=== PATIENT | female | born 1955 | race Caucasian/White ===

== ENCOUNTER → 2019-10-11 09:26 | Outpatient (CLI) | payer OTHER, SELFPAY ==
[2019-10-11 10:01] LABS: Add Manual Diff / Slide Review NO; Basophils Absolute Auto 0 /uL (0-100); Basophils Percent Auto 0.5 % (0-2); Eosinophils Absolute Auto 300 /uL (0-450); Eosinophils Percent Auto 3.5 % (2-4); Hematocrit 43.4 % (36-46); Hemoglobin 14.7 g/dL (12.0-16.0); Lymphocytes Absolute Auto 3000 /uL (1100-4500); Lymphocytes Percent Auto 38.3 % (25-40); Mean Corpuscular HGB Conc 33.8 % (30-36); Mean Corpuscular Hemoglobin 30.3 PG (26-34); Mean Corpuscular Volume 89.4 fL (80-100); Monocytes Absolute Auto 500 /uL (0-900); Monocytes Percent Auto 6.7 % (3-14); Neutrophils Absolute Auto 4100 /uL (1500-7000); Platelet Count 193 X10^3/uL (150-400); Red Blood Cell Count 4.85 X10^6/uL (4.0-5.2); Red Cell Distribution Width 12.8 % (11.6-14.8)
[2019-10-11 10:05] LABS: Hemoglobin A1C% w Est Avg Glu 9.5 % (4.0-6.0)
[2019-10-11 10:44] LABS: Creatinine Urine Random 36.9 mg/dL
[2019-10-11 10:46] LABS: Alanine Aminotransferase 39 IU/L (<35); Albumin 4.5 g/dL (3.5-5.0); Albumin Globulin Ratio 1.5 (1.0-2.8); Alkaline Phosphatase 97 U/L (38-126); Aspartate Aminotransferase 29 IU/L (14-36); Bilirubin Total 0.9 mg/dL (0.2-1.3); Blood Urea Nitrogen 14 mg/dL (7-17); Calcium 9.9 mg/dL (8.4-10.2); Carbon Dioxide 32 mmol/L (22-32); Chloride 97 mmol/L (98-107); Cholesterol 300 mg/dL (140-199); Estimated Glomerular Filt Rate > 60.0 mL/min (>60); Glucose 202 mg/dL (80-110); HDL Cholesterol 37 mg/dL (40-60); HEMOLYSIS < 15 (0-50); LDL Cholesterol Calculated 190 mg/dL (<100); Potassium 4.6 mmol/L (3.4-5.1); Sodium 136 mmol/L (137-145); Total Protein 7.5 g/dL (6.3-8.2); Triglycerides 367 mg/dL (35-150)
[2019-10-11 10:47] LABS: Microalbumi Creatinin Ratio Ur 21.6 ug/mg CR (<30); Microalbumin Urine Random 0.8 mg/dL (0-1.6)
[2019-10-11 11:00] LABS: Free T3, Triiodothyronine Free 2.77 pg/mL (2.77-5.27); Free T4, Direct Thyroxine 0.54 ng/dL (0.78-2.19)
[2019-10-11 11:14] LABS: Thyroid Stimulating Hormone 8.84 uIU/mL (0.47-4.68)
[2019-10-11 11:31] LABS: Hep C Virus Ab w/Reflex Quant NEGATIVE s/c (NEGATIVE)
== END ==
PROVIDERS: PCP Nurse Practitioner; Visit Provider Nurse Practitioner
DX: E03.9 Hypothyroidism, unspecified (principal); E06.3 Autoimmune thyroiditis; E66.9 Obesity, unspecified; I10 Essential (primary) hypertension; Z00.00 Encounter for general adult medical examination without abnormal findings; Z11.59 Encounter for screening for other viral diseases; Z91.89 Other specified personal risk factors, not elsewhere classified; R81 Glycosuria
CPT/HCPCS: 36415; 80053; 80061; 82043; 82570; 83036; 84439; 84443; 84481; 85025; 86803

== ENCOUNTER → 2019-11-23 11:43 | Outpatient (CLI) | payer OTHER, SELFPAY ==
--- NOTE | 2019-11-23 | DI.CT.S_ITS ---
PROCEDURE: CT ABDOMEN PELVIS WO CON INDICATIONS: Calculus of ureter and kidney TECHNIQUE: Noncontrast 5 mm thick sections acquired from the diaphragms to the symphysis. 5 mm thick coronal and sagittal reformats were then performed. For radiation dose reduction, the following was used: automated exposure control, adjustment of mA and/or kV according to patient size. COMPARISON: Outside Film, CT, CT ABDOMEN PELVIS WITHOUT CONTRAST, 04/27/2019, 16:44. FINDINGS: Image quality: Excellent. Lung bases: Lung bases are clear. Heart size is normal. Urinary system: There is a 9 mm stone in right kidney, and a 2 mm stone left kidney. Both kidneys are normal in size. No hydronephrosis or perinephric fat stranding. Both ureters appear non-dilated throughout their expected courses. Bladder wall thickness is normal; no calcified bladder stones. Other solid organs: There is diffuse hepatic fatty infiltration. Liver is normal in size. Gallbladder not visualized, probably resected. Pancreas is normal in contours. Spleen is normal in size. No adrenal nodules. Peritoneum and bowel: Unenhanced bowel loops demonstrate normal wall thickness and caliber. No free fluid or air. Nodes and vessels: No retroperitoneal or mesenteric adenopathy by size criteria. Aorta and inferior vena cava are normal in caliber. Abdominal wall: No ventral hernias. Pelvis: No free pelvic fluid. No inguinal hernias or adenopathy. Bones: No suspicious bony lesions. No vertebral body compression fractures. IMPRESSION: 1. A 9 mm stone in right kidney and a 2 mm stone in left kidney. No hydronephrosis. 2. Hepatic steatosis. Dictated by: Issa Mead M.D. on 11/23/2019 at 12:53 Approved by: Issa Mead M.D. on 11/23/2019 at 18:50
== END ==
PROVIDERS: PCP Nurse Practitioner; Referring Provider Urology; Visit Provider Urology
DX: N20.0 Calculus of kidney (principal); K76.0 Fatty (change of) liver, not elsewhere classified; N20.1 Calculus of ureter
CPT/HCPCS: 74176

== ENCOUNTER 2019-11-24 11:07 | Day surgery (SDC) | payer OTHER, SELFPAY ==
--- NOTE | 2019-11-24 | PATH_ITS ---
[facility] Accession Number: [id number] . 01 Material submitted: . colon - COLON POLYP AT 50 CM . 02 Diagnosis: Colon, Polyp at 50 cm, Biopsy: Tubular adenoma. MRV 11/28/2019 1104 Local . 02 Electronically signed: . Paty Das MD, Pathologist NPI- [id number] . 01 Gross description: . COLON POLYP AT 50 CM: Received in formalin is 1 fragment(s) of cabrera, soft tissue measuring 0.3 x 0.3 x 0.3 cm submitted entirely in 1 cassette(s) /QBJ 11/25/2019 0114 Local . 02 Pathologist provided ICD-10: D12.6 . 02 CPT . 217028 Specimen Comment: A duplicate report has been generated due to demographic updates. Performed at: 01 [facility] [address] [id number] MD Jacinto Shea MD Phone: [phone] Performed at: 02 [facility] [address] [facility] [address] [place], [place] [id number] MD Paty Das MD Phone: [phone]
[2019-11-24 12:59] VITALS: BP 159/91; PULSE 90; RESP 18; TEMP 36.4; O2SAT 96; BMI 42.0
[2019-11-24] MEDS: SODIUM CHLORIDE 0.9% 1,000 ML 200 ML IV (13:12)
--- NOTE | 2019-11-24 13:23 | PM.HP.1 ---
History of Present Illness History of Present Illness Date Patient Seen: 11/24/19 Time Patient Seen: 13:23 Chief complaint: [id number] SCREENING COLONOSCOPY Narrative: Patient here for her 1st screening colonoscopy. She has occasional rectal bleeding which he attributes to hemorrhoidal disease. Otherwise she is asymptomatic. Patient has morbid obesity and has type 2 diabetes. Patient History Medical History Depression (Chronic ~2001) Suzan's disease (Acute) Hypertension, essential (Acute) Mixed hyperlipidemia due to type 2 diabetes mellitus (Acute) Non-insulin dependent diabetes mellitus (Acute) Renal calculi (Acute ~06/2019) Surgical History Anesthesia (Resolved) History of ankle surgery (Resolved ~2008) Family & Social History Family History Father Alcoholism Social History: household members spouse Tobacco & Substance use: Smoking Status Never smoker alcohol intake never Substance Use Type does not use Meds Home Medications and Allergies Home Medications Medication Instructions Recorded Confirmed Type fluoxetine 10 mg capsule 10 mg PO DAILY #90 cap 09/26/19 11/24/19 Rx levothyroxine 125 mcg tablet 125 mcg PO DAILY #90 tab 10/13/19 11/24/19 Rx metformin 500 mg tablet 500 mg PO DAILY #30 tab 10/13/19 11/24/19 Rx cyclobenzaprine 10 mg tablet 10 mg PO BEDTIME PRN #20 tab 11/23/19 11/24/19 Rx Allergies Allergy/AdvReac Type Severity Reaction Status Date / Time Penicillins AdvReac Verified 11/24/19 12:47 Review of Systems Review of Systems ROS: Yes All systems reviewed with the patient and are negative except as otherwise documented Exam Vital Signs (past 8 hours): - 11/24/19 12:59 Temperature 97.5 F L Pulse Rate 90 Respiratory Rate 18 Blood Pressure 159/91 H Pulse Oximetry 96 Oxygen Delivery Method Room Air Narrative Exam Narrative: Morbidly obese white female in no distress. Ears nose and throat are unremarkable lungs are clear. Heart regular rhythm no murmur no gallop Abdomen markedly obese no organomegaly is identifiable. Rectal be done at colonoscopy. Assessment & Plan Assessment & Plan narrative: 64-year-old white female patient here for her 1st screening colonoscopy. She has no unanswered questions.
[2019-11-24] MEDS: fentaNYL 250 MCG/5 ML INJ IV (13:33)
[2019-11-24] MEDS: MIDAZOLAM 5 MG/5 ML VIAL IV (13:34)
--- NOTE | 2019-11-24 14:00 | PM.OP.ENDO ---
Operative Date/Time/Diagnoses Date of procedure: 11/24/19 Time of procedure: 14:00 Pre-op diagnosis: Screening colonoscopy Post-op diagnosis: other (Colonoscopy to the cecum with polypectomy x2 1 at 50 cm 1 in the cecum) Procedure & Clinicians Study performed: Total colonoscopy to the cecum with polypectomy x2 Same procedure as scheduled: No (Two polyps were identified 1 cm in the cecum and a 0.5 cm at 50 cm) Surgeon: Gautam Mercado Procedure Notes SCOAP/Timeout: This was done Procedure in detail: Patient was properly identified during surgical pause she was given a total of 2 mg of Versed and 150 micro g of fentanyl and remained comfortable throughout procedure. Patient's prep was barely adequate for colonoscopy. Was not a good prep. We were able to advance scope to the cecum. In the cecum she had a 1 cm adenoma which I excised using electro cautery snare. Somewhat disabled by a poor prep I was not able to identify the polyp for pathology. The polyp appeared to be a benign adenoma. Again it was 1 cm in diameter. At 50 cm I was able to toward identify a 5 mm polyp which I excised with cold snare. I did retrieve this polyp. I could not identify any further polyps because of the poor prep. Scope withdrawal time: 10 Sedation minutes: 25 Findings: polyp Specimen(s): other (5 mm polyp from 50 cm in the colon patient had a cecal polyp which I excised but I could not retrieve) Complications: none Post-procedure Recommendations: Colonscopy in 1 year and Colonscopy in 3 years Disposition: PACU
[2019-11-24 14:03] VITALS: BP 160/90; PULSE 86; RESP 16; TEMP 36.9; O2SAT 94
[2019-11-24 14:08] VITALS: BP 149/91; PULSE 86; RESP 16; O2SAT 94
[2019-11-24 14:13] VITALS: BP 154/79; PULSE 85; RESP 14; O2SAT 94
[2019-11-24 14:15] VITALS: BP 160/85; PULSE 85; RESP 14; TEMP 36.1; O2SAT 93
== END 2019-11-24 14:26 | disposition home or self-care (01) ==
PROVIDERS: PCP Nurse Practitioner; Referring Provider Surgery; Visit Provider Surgery
PROC: 0DJD8ZZ Inspection of Lower Intestinal Tract, Via Natural or Artificial Opening Endoscopic (ICD-10-PCS; CPT 45378; principal; 2019-11-24 13:45)
DX: Z12.11 Encounter for screening for malignant neoplasm of colon (principal); I10 Essential (primary) hypertension; E78.5 Hyperlipidemia, unspecified; E11.9 Type 2 diabetes mellitus without complications; E66.01 Morbid (severe) obesity due to excess calories; Z79.84 Long term (current) use of oral hypoglycemic drugs; D12.6 Benign neoplasm of colon, unspecified
CPT/HCPCS: 45385; 99152; J2250; J3010

== ENCOUNTER → 2019-12-23 09:28 | Outpatient (CLI) | payer OTHER, SELFPAY ==
[2019-12-23 10:21] LABS: Alanine Aminotransferase 49 IU/L (<35); Albumin 4.8 g/dL (3.5-5.0); Albumin Globulin Ratio 1.4 (1.0-2.8); Alkaline Phosphatase 102 U/L (38-126); Aspartate Aminotransferase 33 IU/L (14-36); BUN Creatinine Ratio 23.1 (6-22); Bilirubin Total 0.9 mg/dL (0.2-1.3); Blood Urea Nitrogen 15 mg/dL (7-17); Calcium 9.5 mg/dL (8.4-10.2); Carbon Dioxide 32 mmol/L (22-32); Chloride 101 mmol/L (98-107); Cholesterol 257 mg/dL (140-199); Estimated Glomerular Filt Rate > 60.0 mL/min (>60); Globulin 3.4 g/dL (1.7-4.1); Glucose 208 mg/dL (80-110); HDL Cholesterol 39 mg/dL (40-60); HEMOLYSIS < 15 (0-50); LDL Cholesterol Calculated 167 mg/dL (<100); Potassium 4.5 mmol/L (3.4-5.1); Sodium 142 mmol/L (137-145); Total Protein 8.2 g/dL (6.3-8.2); Triglycerides 254 mg/dL (35-150)
[2019-12-23 10:38] LABS: Vitamin D 25 Hydroxy (D3) 17.6 ng/mL (30.0-100.0)
[2019-12-23 10:39] LABS: Free T3, Triiodothyronine Free 3.51 pg/mL (2.77-5.27); Free T4, Direct Thyroxine 1.06 ng/dL (0.78-2.19)
[2019-12-23 10:42] LABS: Creatinine Urine Random 137.7 mg/dL
[2019-12-23 10:46] LABS: Microalbumi Creatinin Ratio Ur 13.7 ug/mg CR (<30); Microalbumin Urine Random 1.9 mg/dL (0-1.6)
[2019-12-23 10:52] LABS: Thyroid Stimulating Hormone 0.48 uIU/mL (0.47-4.68)
== END ==
PROVIDERS: PCP Nurse Practitioner; Referring Provider Nurse Practitioner; Visit Provider Nurse Practitioner
DX: E06.3 Autoimmune thyroiditis (principal); E11.69 Type 2 diabetes mellitus with other specified complication; E78.2 Mixed hyperlipidemia; F32.9 Major depressive disorder, single episode, unspecified; I10 Essential (primary) hypertension; Z79.899 Other long term (current) drug therapy; E78.5 Hyperlipidemia, unspecified; N20.0 Calculus of kidney
CPT/HCPCS: 36415; 80053; 80061; 82043; 82306; 82570; 83036; 84439; 84443; 84481

== ENCOUNTER → 2019-12-27 15:00 | Outpatient (CLI) | payer OTHER, SELFPAY ==
--- NOTE | 2019-12-27 15:02 | DI.RAD.S_ITS ---
PROCEDURE: XR SHOULDER RT MIN 2V INDICATIONS: right shoulder pain TECHNIQUE: 3 views of the shoulder were acquired. COMPARISON: None. FINDINGS: Bones: No fractures or dislocations. Mild degenerative changes of the right acromioclavicular joint. No suspicious bony lesions. Visualized ribs appear intact. Soft tissues: No suspicious soft tissue calcifications. IMPRESSION: Right shoulder without acute fracture or dislocation. Mild degenerative changes of the right acromioclavicular joint. Dictated by: Romulo Lam M.D. on 12/27/2019 at 16:33 Approved by: Romulo Lam M.D. on 12/27/2019 at 16:34
== END ==
PROVIDERS: PCP Nurse Practitioner; Referring Provider Nurse Practitioner; Visit Provider Nurse Practitioner
DX: M25.511 Pain in right shoulder (principal)
CPT/HCPCS: 73030

== ENCOUNTER → 2020-01-03 11:28 | Outpatient (CLI) | payer OTHER, SELFPAY ==
--- NOTE | 2020-01-03 11:31 | DI.MRI.S_ITS ---
PROCEDURE: MR SHOULDER RT WO CON INDICATIONS: shoulder pain TECHNIQUE: Noncontrast oblique coronal T2 fast spin echo with fat saturation, oblique sagittal T1 spin echo and T2 fast spin echo with fat saturation, axial T1 spin echo and T2 fast spin echo with fat saturation through the shoulder. COMPARISON: [facility], CR, XR SHOULDER RT MIN 2V, 12/27/2019, 14:54. FINDINGS: Image quality: Partially degraded by motion artifact. Rotator cuff: The supraspinatus, infraspinatus, and subscapularis tendons appear intact throughout. Sagittal images demonstrate no muscle atrophy. Bones and bursae: No bone marrow contusions or fractures. Moderate acromioclavicular joint degeneration. The acromion demonstrates conventional anatomy, without an os acromiale. No pathologic subacromial-subdeltoid or subcoracoid bursal fluid is present. Capsule and soft tissues: In the absence of intra-articular contrast, the labrum and glenohumeral ligaments appear intact. The long head of the biceps tendon demonstrates normal location and morphology. The rotator interval appears normal, without fibrosis. The coracohumeral ligament is normal in thickness. IMPRESSION: 1. No rotator cuff tear. 2. Acromioclavicular joint osteoarthritis. Dictated by: Neda Hernandez M.D. on 01/03/2020 at 14:10 Approved by: Neda Hernandez M.D. on 01/03/2020 at 14:12
--- NOTE | 2020-01-03 11:31 | DI.MRI.S_ITS ---
PROCEDURE: MR CERVICAL SPINE WO/W CON INDICATIONS: shoulder pain TECHNIQUE: Noncontrast sagittal T1 spin echo and T2 fast spin echo, sagittal STIR, foraminal oblique sagittal T2 fast spin echo, axial gradient echo or T2 fast spin echo through the cervical spine. After the administration of contrast, axial and sagittal T1 spin echo with fat saturation through the cervical spine. COMPARISON: None. FINDINGS: Image quality: Diagnostic, with note made of motion artifact. Alignment and curvature: There is reversal of the normal cervical lordosis, with the apex at the C5-C6 level. No focal AP alignment abnormality is seen. Marrow: Marrow is normal in overall signal, without suspicious enhancement. Spinal cord: Visualized spinal cord has normal size and signal. No cerebellar tonsillar herniation. No abnormal intramedullary enhancement. Paraspinous soft tissues: No paravertebral masses or suspicious enhancement. C2-3: The disc height is well-preserved. Loss of disc signal is seen at this level. A mild degree of generalized disc osteophyte complex is seen. There is moderate right-sided and no left-sided neural foraminal narrowing seen. There is moderate to severe right-sided and no left-sided neural foraminal narrowing seen. No central canal narrowing is seen. C3-4: The disc height is well-preserved. Loss of disc signal is seen at this level. Mild to moderate disc osteophyte complex is seen. There is mild to moderate bilateral facet hypertrophy seen. There is moderate right-sided and mild to moderate left-sided neural foraminal narrowing seen. Mild central canal narrowing is seen. C4-5: The disc height is well-preserved. Loss of disc signal is seen at this level. Moderate generalized disc osteophyte complex is seen. There is a mild central disc osteophyte protrusion, as on series 4 image 23. Mild to moderate facet hypertrophy is seen. There is mild to moderate right-sided and minimal left-sided neural foraminal narrowing seen. [id number] central canal narrowing is seen, with associated mild mass effect upon the ventral spinal. C5-6: Moderate loss of disc height is seen. Loss of disc signal is seen. Moderate disc osteophyte complex is seen, which is eccentric to the right. There is a right lateral recess/right foraminal disc osteophyte protrusion seen. There is moderate to severe right-sided and mild to moderate left-sided neural foraminal narrowing seen. Moderate to severe central canal narrowing is seen. There is associated mass effect upon the ventral spinal cord. C6-7: Mild loss of disc height is seen. Loss of disc signal is seen. Mild to moderate disc osteophyte complex is seen. There is no neural foraminal narrowing seen. No significant central canal narrowing is seen. C7-T1: No significant abnormality is seen. IMPRESSION: Cervical spine degenerative changes are seen, which are worst at the C5-C6 level, where there is a right-sided disc osteophyte protrusion with associated moderate to severe right-sided neural foraminal narrowing and moderate to severe central canal narrowing, with associated mass effect upon the ventral spinal cord. No abnormal enhancement is seen. Dictated by: Jeremie Edwards M.D. on 01/03/2020 at 14:01 Approved by: Jeremie Edwards M.D. on 01/03/2020 at 14:06
== END ==
PROVIDERS: PCP Nurse Practitioner; Referring Provider Nurse Practitioner; Visit Provider Nurse Practitioner
DX: M25.511 Pain in right shoulder (principal); M54.2 Cervicalgia; M19.011 Primary osteoarthritis, right shoulder; M47.812 Spondylosis without myelopathy or radiculopathy, cervical region; M48.02 Spinal stenosis, cervical region; S14.3XXA Injury of brachial plexus, initial encounter
CPT/HCPCS: 72156; 73221

== ENCOUNTER → 2020-02-14 10:01 | Outpatient (CLI) | payer OTHER, SELFPAY ==
[2020-02-14 11:39] LABS: Hemoglobin A1C% w Est Avg Glu 7.6 % (4.0-6.0)
== END ==
PROVIDERS: PCP Nurse Practitioner; Referring Provider Neurological Surgery; Visit Provider Neurological Surgery
DX: E11.9 Type 2 diabetes mellitus without complications (principal)
CPT/HCPCS: 36415; 83036

== ENCOUNTER → 2020-03-01 10:14 | Outpatient (CLI) | payer OTHER, SELFPAY ==
--- NOTE | 2020-03-01 | DI.RAD.S_ITS ---
PROCEDURE: XR CERVICAL SPINE 2V OR 3V INDICATIONS: follow up to surgery last week TECHNIQUE: 3 view(s) of the cervical spine were acquired. COMPARISON: [facility], MR, MR CERVICAL SPINE WO/W CON, 01/03/2020, 13:23. FINDINGS: Bones: Postoperative changes are seen, with an anterior cervical spine fusion plate at the C5 and C6 levels. The fusion plate appears well seated. There is a disc spacer seen at C5-C6. No findings of hardware failure or hardware loosening are seen. No displaced fractures are seen. No suspicious lytic or blastic lesions are seen. There is straightening of the normal cervical lordosis. Soft tissues: No prevertebral soft tissue swelling. The visualized lung apices are unremarkable. IMPRESSION: Unremarkable C5-C6 postoperative change. Dictated by: Jeremie Edwards M.D. on 03/01/2020 at 11:02 Approved by: Jeremie Edwards M.D. on 03/01/2020 at 11:03
== END ==
PROVIDERS: PCP Nurse Practitioner; Referring Provider Neurological Surgery; Visit Provider Neurological Surgery
DX: M47.22 Other spondylosis with radiculopathy, cervical region (principal); Z98.1 Arthrodesis status
CPT/HCPCS: 72040

== ENCOUNTER → 2020-03-18 13:58 | Outpatient (CLI) | payer OTHER, SELFPAY ==
--- NOTE | 2020-03-18 | DI.RAD.S_ITS ---
PROCEDURE: XR ABDOMEN 1V INDICATIONS: Calculus of ureter TECHNIQUE: One view of the abdomen acquired. COMPARISON: [facility], CT, CT ABDOMEN PELVIS WO CON, 11/23/2019, 11:44. FINDINGS: Surgical changes and devices: None. Bowel: Bowel gas pattern is normal. Soft tissues: No known suspicious abdominal calcifications. The calculus superimposed on the right kidney has been previously present, and by plain film measurement is up to 7 mm in diameter. A previously present small 2 mm calculus reported at the left kidney collecting system cannot be a by plain film Visualized solid organ contours appear normal in size. Bones: No suspicious bony lesions. IMPRESSION: 7 mm calculus overlying the right renal collecting system area. A previously seen 2 mm calculus on the left is not visualized by plain film. Dictated by: Joey Wade M.D. on 03/18/2020 at 14:33 Approved by: Joey Wade M.D. on 03/18/2020 at 14:35
== END ==
PROVIDERS: PCP Nurse Practitioner; Referring Provider Urology; Visit Provider Urology
DX: N20.1 Calculus of ureter (principal); N20.0 Calculus of kidney
CPT/HCPCS: 74018

== ENCOUNTER → 2020-05-23 12:53 | Outpatient (CLI) | payer OTHER, SELFPAY ==
--- NOTE | 2020-05-23 | DI.RAD.S_ITS ---
PROCEDURE: XR CERVICAL SPINE 1V INDICATIONS: 3 month follow up TECHNIQUE: Single lateral view of the cervical spine acquired. COMPARISON: [facility], CR, XR CERVICAL SPINE 2V OR 3V, 03/01/2020, 10:25. FINDINGS: Bones: Stable postsurgical staining is consistent with ACDF at the C5-C6 level with fixation plate and disc spacer in expected position. There is loss of the normal cervical lordosis. Soft tissues: No prevertebral soft tissue swelling. IMPRESSION: Stable postsurgical sequelae and bony alignment. Dictated by: Francisco Cordoba [facility] Interpreted: Joel Olson MD on 05/23/2020 at 13:30 Approved by: Joel Olson M.D. on 05/23/2020 at 15:53
== END ==
PROVIDERS: PCP Nurse Practitioner; Referring Provider Neurological Surgery; Visit Provider Neurological Surgery
DX: M47.22 Other spondylosis with radiculopathy, cervical region (principal); Z98.1 Arthrodesis status
CPT/HCPCS: 72020

== ENCOUNTER → 2020-08-27 10:42 | Outpatient (CLI) | payer OTHER, SELFPAY ==
--- NOTE | 2020-08-27 | DI.RAD.S_ITS ---
PROCEDURE: XR CERVICAL SPINE 1V INDICATIONS: Other spondylosis with radiculopathy, cervical region TECHNIQUE: Single lateral view of the cervical spine acquired. COMPARISON: [facility], CR, XR CERVICAL SPINE 1V, 05/23/2020, 12:50. FINDINGS: Bones: No fracture. Postsurgical changes related to C5-C6 ACDF. Hardware appears intact. Expected postoperative alignment. Straightening of the normal lordotic curvature. The remaining disc spaces appear grossly preserved. Multilevel degenerative endplate sclerosis and spurring. Diffuse facet arthropathy. Soft tissues: No prevertebral soft tissue swelling. IMPRESSION: Straightening of the normal lordotic curvature. Status post C5-C6 ACDF in expected postoperative alignment. Dictated by: Sahil Bacon M.D. on 08/27/2020 at 12:55 Approved by: Sahil Bacon M.D. on 08/27/2020 at 12:56
== END ==
PROVIDERS: PCP Nurse Practitioner; Referring Provider Neurological Surgery; Visit Provider Neurological Surgery
DX: M47.22 Other spondylosis with radiculopathy, cervical region (principal); Z98.1 Arthrodesis status
CPT/HCPCS: 72020

== ENCOUNTER → 2020-11-22 12:01 | Outpatient (CLI) | payer OTHER, SELFPAY ==
--- NOTE | 2020-11-22 12:05 | DI.RAD.S_ITS ---
PROCEDURE: XR CERVICAL SPINE 1V INDICATIONS: C-SPINE PAIN TECHNIQUE: Single lateral view of the cervical spine acquired. COMPARISON: [facility], CR, XR CERVICAL SPINE 1V, 08/27/2020, 11:45. FINDINGS: Bones: No fracture. Postsurgical change related ACDF at the C5-C6 level. The hardware appears intact. Expected postoperative alignment. Multilevel degenerative endplate sclerosis and spurring. Diffuse facet arthropathy. Trace anterolisthesis of C3 on C4 and C4 on C5. Minimal narrowing of the remaining cervical disc spaces. Soft tissues: No prevertebral soft tissue swelling. IMPRESSION: Postsurgical and degenerative changes as above. No definite interval change since 08/27/20 Dictated by: Sahil Bacon M.D. on 11/22/2020 at 14:53 Approved by: Sahil Bacon M.D. on 11/22/2020 at 14:55
== END ==
PROVIDERS: PCP Nurse Practitioner; Referring Provider Neurological Surgery; Visit Provider Neurological Surgery
DX: M47.22 Other spondylosis with radiculopathy, cervical region (principal); Z98.1 Arthrodesis status
CPT/HCPCS: 72020

== ENCOUNTER → 2021-08-21 09:34 | Outpatient (CLI) | payer OTHER, SELFPAY ==
[2021-08-21 10:55] LABS: Hemoglobin A1C% w Est Avg Glu 10.7 % (4.0-6.0)
[2021-08-21 11:01] LABS: Creatinine Urine Random 141.8 mg/dL
[2021-08-21 11:02] LABS: Microalbumi Creatinin Ratio Ur 28.2 ug/mg CR (<30)
[2021-08-21 11:04] LABS: Alanine Aminotransferase 27 IU/L (<35); Albumin 4.3 g/dL (3.5-5.0); Albumin Globulin Ratio 1.5 (1.0-2.8); Alkaline Phosphatase 98 U/L (38-126); Aspartate Aminotransferase 27 IU/L (14-36); BUN Creatinine Ratio 22.4 (6-22); Bilirubin Total 0.8 mg/dL (0.2-1.3); Blood Urea Nitrogen 15 mg/dL (7-17); Calcium 9.1 mg/dL (8.4-10.2); Carbon Dioxide 34 mmol/L (22-32); Chloride 97 mmol/L (98-107); Cholesterol 260 mg/dL (140-199); Estimated Glomerular Filt Rate > 60.0 mL/min (>60); Globulin 2.9 g/dL (1.7-4.1); Glucose 291 mg/dL (80-110); HDL Cholesterol 44 mg/dL (40-60); HEMOLYSIS < 15 (0-50); LDL Cholesterol Calculated 139 mg/dL (<100); Potassium 4.2 mmol/L (3.4-5.1); Sodium 138 mmol/L (137-145); Total Protein 7.2 g/dL (6.3-8.2); Triglycerides 383 mg/dL (35-150)
[2021-08-21 11:39] LABS: Thyroid Stimulating Hormone 3.26 uIU/mL (0.47-4.68)
== END ==
PROVIDERS: PCP Nurse Practitioner; Referring Provider Nurse Practitioner; Visit Provider Nurse Practitioner
DX: E06.3 Autoimmune thyroiditis (principal); E11.69 Type 2 diabetes mellitus with other specified complication; E78.2 Mixed hyperlipidemia
CPT/HCPCS: 36415; 80053; 80061; 82043; 82570; 83036; 84443

== ENCOUNTER → 2021-11-16 12:22 | Outpatient (CLI) | payer OTHER, SELFPAY ==
--- NOTE | 2021-11-16 12:24 | DI.MRI.S_ITS ---
PROCEDURE: MR SHOULDER LT WO CON INDICATIONS: Persistent bilateral shoulder pain x13 mos TECHNIQUE: Noncontrast oblique coronal T2 fast spin echo with fat saturation, oblique sagittal T1 spin echo and T2 fast spin echo with fat saturation, axial T1 spin echo and T2 fast spin echo with fat saturation through the shoulder. COMPARISON: [facility], MR, MR SHOULDER RT WO CON, 01/03/2020, 13:04. FINDINGS: Image quality: Excellent. Rotator cuff: Mild to moderate supraspinatus tendinopathy with small partial, articular surface and interstitial tears. Minimal infraspinatus tendinopathy with small partial articular surface tear. Mild tendinopathy of the subscapularis tendon without evidence of tear. Sagittal images demonstrate at least grade 2 supraspinatus muscle atrophy. Bones and bursae: No bone marrow contusions or fractures. Mild acromioclavicular joint degeneration with T2 hyperintense signal within the articulation. No os acromiale. No pathologic subacromial-subdeltoid or subcoracoid bursal fluid is present. Capsule and soft tissues: Blunting of the labrum, likely reflecting degenerative tear. The long head of the biceps tendon demonstrates normal location. Small amount of fluid surrounds the biceps tendon, compatible with tenosynovitis. The rotator interval appears normal, without fibrosis. The coracohumeral ligament is normal in thickness. IMPRESSION: 1. Iqsd-ch-bwlotaas supraspinatus tendinopathy with small partial, articular surface and interstitial tears. 2. Minimal infraspinatus tendinopathy with small partial articular surface tear. 3. Mild AC joint degeneration. Dictated by: Marco Peña M.D. on 11/17/2021 at 12:34 Approved by: Marco Peña M.D. on 11/17/2021 at 12:45
== END ==
PROVIDERS: PCP Nurse Practitioner; Referring Provider Nurse Practitioner; Visit Provider Nurse Practitioner
DX: M19.012 Primary osteoarthritis, left shoulder (principal); M75.112 Incomplete rotator cuff tear or rupture of left shoulder, not specified as traumatic; M25.512 Pain in left shoulder; M25.511 Pain in right shoulder
CPT/HCPCS: 73221

== ENCOUNTER → 2022-04-09 08:03 | Outpatient (CLI) | payer OTHER, SELFPAY ==
[2022-04-09 09:12] LABS: Hemoglobin A1C% w Est Avg Glu 7.8 % (4.0-6.0)
[2022-04-09 09:44] LABS: Creatinine Urine Random 180.5 mg/dL
[2022-04-09 09:49] LABS: Alanine Aminotransferase 23 IU/L (<35); Albumin 4.1 g/dL (3.5-5.0); Albumin Globulin Ratio 1.7 (1.0-2.8); Alkaline Phosphatase 84 U/L (38-126); Aspartate Aminotransferase 20 IU/L (14-36); BUN Creatinine Ratio 20.3 (6-22); Bilirubin Total 0.7 mg/dL (0.2-1.3); Blood Urea Nitrogen 14 mg/dL (7-17); Calcium 8.9 mg/dL (8.4-10.2); Carbon Dioxide 30 mmol/L (22-32); Chloride 100 mmol/L (98-107); Cholesterol 161 mg/dL (140-199); Estimated Glomerular Filt Rate > 60 mL/min (>60); Globulin 2.4 g/dL (1.7-4.1); Glucose 182 mg/dL (80-110); HDL Cholesterol 34 mg/dL (40-60); HEMOLYSIS < 15 (0-50); LDL Cholesterol Calculated 86 mg/dL (<100); Microalbumi Creatinin Ratio Ur 23.8 ug/mg CR (<30); Microalbumin Urine Random 4.3 mg/dL (0-1.6); Sodium 139 mmol/L (137-145); Total Protein 6.5 g/dL (6.3-8.2); Triglycerides 204 mg/dL (35-150)
== END ==
PROVIDERS: PCP Nurse Practitioner; Referring Provider Nurse Practitioner; Visit Provider Nurse Practitioner
DX: E11.69 Type 2 diabetes mellitus with other specified complication (principal); E78.2 Mixed hyperlipidemia; I10 Essential (primary) hypertension
CPT/HCPCS: 36415; 80053; 80061; 82043; 82570; 83036

== ENCOUNTER → 2022-04-15 12:11 | Outpatient (CLI) | payer OTHER, SELFPAY ==
[2022-04-15 13:26] LABS: Free T3, Triiodothyronine Free 3.34 pg/mL (2.77-5.27); Free T4, Direct Thyroxine 0.88 ng/dL (0.78-2.19)
[2022-04-15 13:40] LABS: Thyroid Stimulating Hormone 0.089 uIU/mL (0.47-4.68)
[2022-04-16 06:20] LABS: Thyroid Peroxidase Antibodies 23 IU/mL (0-34)
== END ==
PROVIDERS: PCP Nurse Practitioner; Referring Provider Nurse Practitioner; Visit Provider Nurse Practitioner
DX: E06.3 Autoimmune thyroiditis (principal); E03.9 Hypothyroidism, unspecified
CPT/HCPCS: 36415; 84439; 84443; 84481; 86376

== ENCOUNTER → 2022-06-25 16:05 | Outpatient (CLI) | payer OTHER, SELFPAY ==
--- NOTE | 2022-06-25 16:06 | DI.ECHO.S_ITS ---
[facility] +---------+ : : [address] [place] : : : : [id number] : : : : Phone: [phone] Echocardiogram Report + + :Name: KASH BLAS Study Date: 06/25/2022 Height: 64 in : :[facility] ReadingLocation: Weight: 221 lb : : Gender: Female BSA: 2.0 m2 : :: 1955 Age: 66 yrs BP: 171/99 mmHg: :Reason For Study: Hypertension : :Ordering Physician: CA, : :CRISTO Performed By: Jose Manuel Johnson : :Referring: CRISTO PENALOZA : + + Interpretation Summary 1) Normal left ventricular thickness, size, wall motion, and systolic function (EF 60-65%). 2) Normal right ventricular size and function. 3) No significant valvular abnormalities. 4) The ascending aorta is mildly enlarged at 4.2cm. 5) No prior Echo available for comparison. Procedure: A two-dimensional transthoracic echocardiogram with color flow and Doppler was performed. The study quality was technically adequate. There is no prior echocardiogram noted for this patient. The patient was in normal sinus rhythm during the exam. Left Ventricle: The left ventricle is normal in size and wall thickness. Left ventricular systolic function is normal. The ejection fraction is estimated to be 60-65%. There are no focal wall motion abnormalities. Diastolic function could not be accurately assessed due to contradictory data. Right Ventricle: The right ventricle is normal in size and function. Atria: Both atria are normal in size. The interatrial septum grossly appears intact with no obvious evidence for an atrial septal defect. Mitral Valve: The mitral valve is normal in structure and function. There is no mitral regurgitation noted. Aortic Valve: The aortic valve is normal in structure and function. There is no aortic valve stenosis. No aortic regurgitation is present. Tricuspid Valve: The tricuspid valve is normal in structure and function. No tricuspid regurgitation. Pulmonary artery pressures cannot be estimated because of the lack of a measurable TR jet velocity. Pulmonic Valve: The pulmonic valve is not well seen, but is grossly normal. There is no pulmonic valvular regurgitation. Great Vessels: The aortic root is normal size. The ascending aorta is mildly enlarged. The IVC is of normal diameter and collapses greater than 50% with a sniff. This suggests a low right atrial pressure of 3 mm Hg. Pericardium/ Pleura There is no pericardial effusion. There is no pleural effusion. MMode/2D Measurements & Calculations LVIDd: 4.9 cm LVOT diam: 2.1 cm LVIDs: 3.5 cm Ao root diam: 3.6 cm FS: 28.6 % asc Aorta Diam: 4.2 cm IVSd: 1.0 cm LVPWd: 0.90 cm LV longo. diameter/BSA (cm/m^2): 2.4 LV sys. diameter/BSA (cm/m^2): 1.7 LA dimension: 3.2 cm RA long axis: 5.0 cm LA A2 area: 17.2 cm2 LA A4 area: 15.3 cm2 LA length (vol): 6.0 cm LA vol: 37.5 ml LA vol index: 18.4 ml/m2 TAPSE_phl: 2.2 cm Doppler Measurements & Calculations Ao V2 max: 165.0 cm/sec LVOT Max Jake: 137.0 cm/sec Ao V2 mean: 108.0 cm/sec LV V1 max P.5 mmHg Ao max P.0 mmHg LV V1 VTI: 25.6 cm Ao mean P.0 mmHg YARIEL(I,D): 3.6 cm2 Ao V2 VTI: 24.3 cm YARIEL(V,D): 2.9 cm2 sev ratio: 1.1 YARIEL indexed to BSA (cm^2/m^2): 1.8 MV E max jake: 81.5 cm/sec SV(LVOT): 88.7 ml MV A max jake: 122.0 cm/sec MV E/A: 0.67 Med Peak E' Jake: 5.1 cm/sec E/E' med: 15.9 Lat Peak E' Jake: 4.6 cm/sec E/E' lat: 17.6 E/e' average: 16.7 MV dec time: 0.25 sec AV VR_phl: 0.83 MV P1/2t-pr_phl: 73.0 msec YARIEL(VTI)/BSA_phl: 1.8 Reading Physician:05:23 PM
== END ==
PROVIDERS: PCP Nurse Practitioner; Referring Provider Nurse Practitioner; Visit Provider Nurse Practitioner
DX: I77.89 Other specified disorders of arteries and arterioles (principal); I10 Essential (primary) hypertension
CPT/HCPCS: 93306

== ENCOUNTER → 2022-08-11 12:00 | Outpatient (CLI) | payer OTHER, SELFPAY ==
[2022-08-11 13:03] LABS: Alanine Aminotransferase 21 IU/L (<35); Albumin 4.4 g/dL (3.5-5.0); Albumin Globulin Ratio 1.3 (1.0-2.8); Alkaline Phosphatase 131 U/L (38-126); Aspartate Aminotransferase 22 IU/L (14-36); BUN Creatinine Ratio 30.5 (6-22); Bilirubin Total 0.8 mg/dL (0.2-1.3); Blood Urea Nitrogen 18 mg/dL (7-17); Calcium 8.8 mg/dL (8.4-10.2); Carbon Dioxide 28 mmol/L (22-32); Chloride 99 mmol/L (98-107); Cholesterol 250 mg/dL (140-199); Estimated Glomerular Filt Rate > 60 mL/min (>60); Globulin 3.5 g/dL (1.7-4.1); Glucose 135 mg/dL (80-110); HDL Cholesterol 41 mg/dL (40-60); HEMOLYSIS < 15 (0-50); LDL Cholesterol Calculated 130 mg/dL (<100); Potassium 4.2 mmol/L (3.4-5.1); Sodium 138 mmol/L (137-145); Total Protein 7.9 g/dL (6.3-8.2); Triglycerides 395 mg/dL (35-150)
[2022-08-11 14:15] LABS: Free T4, Direct Thyroxine 1.18 ng/dL (0.78-2.19)
[2022-08-11 14:29] LABS: Thyroid Stimulating Hormone 2.83 uIU/mL (0.47-4.68)
== END ==
PROVIDERS: PCP Nurse Practitioner; Referring Provider Nurse Practitioner; Visit Provider Nurse Practitioner
DX: E03.9 Hypothyroidism, unspecified (principal); E06.3 Autoimmune thyroiditis; E11.69 Type 2 diabetes mellitus with other specified complication; E78.2 Mixed hyperlipidemia; F33.1 Major depressive disorder, recurrent, moderate; I10 Essential (primary) hypertension
CPT/HCPCS: 36415; 80053; 80061; 83036; 84439; 84443; 84481

== ENCOUNTER → 2023-06-17 11:53 | Outpatient (CLI) | payer OTHER, SELFPAY ==
[2023-06-17 12:53] LABS: Add Manual Diff / Slide Review NO; Basophils Absolute Auto 100 /uL (0-100); Basophils Percent Auto 0.5 % (0-2); Eosinophils Absolute Auto 300 /uL (0-450); Eosinophils Percent Auto 2.8 % (2-4); Hematocrit 41.6 % (36-46); Lymphocytes Absolute Auto 4500 /uL (1100-4500); Lymphocytes Percent Auto 39.6 % (25-40); Mean Corpuscular HGB Conc 33.6 % (30-36); Mean Corpuscular Hemoglobin 29.5 PG (26-34); Mean Corpuscular Volume 87.7 fL (80-100); Monocytes Absolute Auto 900 /uL (0-900); Monocytes Percent Auto 7.6 % (3-14); Neutrophils Absolute Auto 5700 /uL (1500-7000); Neutrophils Percent Auto 49.5 % (50-75); Platelet Count 239 X10^3/uL (150-400); Red Blood Cell Count 4.74 X10^6/uL (4.0-5.2); Red Cell Distribution Width 13.1 % (11.6-14.8); White Blood Cell Count 11.4 X10^3/uL (4.5-11.0)
[2023-06-17 14:19] LABS: Alanine Aminotransferase 35 IU/L (<35); Albumin 4.4 g/dL (3.5-5.0); Albumin Globulin Ratio 1.5 (1.0-2.8); Alkaline Phosphatase 78 U/L (38-126); Aspartate Aminotransferase 30 IU/L (14-36); BUN Creatinine Ratio 31.9 (6-22); Bilirubin Total 1.1 mg/dL (0.2-1.3); Blood Urea Nitrogen 22 mg/dL (7-17); Calcium 9.2 mg/dL (8.4-10.2); Carbon Dioxide 28 mmol/L (22-32); Chloride 98 mmol/L (98-107); Cholesterol 144 mg/dL (140-199); Estimated Glomerular Filt Rate > 60 mL/min (>60); Glucose 150 mg/dL (80-110); HDL Cholesterol 33 mg/dL (40-60); HEMOLYSIS < 15 (0-50); LDL Cholesterol Calculated 70 mg/dL (<100); Potassium 4.1 mmol/L (3.4-5.1); Sodium 136 mmol/L (137-145); Total Protein 7.4 g/dL (6.3-8.2); Triglycerides 206 mg/dL (35-150)
[2023-06-17 14:26] LABS: Creatinine Urine Random 36.3 mg/dL
[2023-06-17 14:31] LABS: Microalbumin Urine Random < 0.6 mg/dL (0-1.6)
[2023-06-17 16:15] LABS: Free T3, Triiodothyronine Free 2.73 pg/mL (2.77-5.27); Free T4, Direct Thyroxine 1.16 ng/dL (0.78-2.19)
[2023-06-17 16:29] LABS: Thyroid Stimulating Hormone 3.49 uIU/mL (0.47-4.68)
[2023-06-17 18:19] LABS: Hemoglobin A1C% w Est Avg Glu 8.1 % (4.0-6.0)
== END ==
PROVIDERS: PCP Nurse Practitioner; Referring Provider Nurse Practitioner; Visit Provider Nurse Practitioner
DX: I10 Essential (primary) hypertension (principal); E11.69 Type 2 diabetes mellitus with other specified complication; E78.2 Mixed hyperlipidemia; E03.9 Hypothyroidism, unspecified; Z79.899 Other long term (current) drug therapy; D64.9 Anemia, unspecified
CPT/HCPCS: 36415; 80053; 80061; 82043; 82570; 83036; 84439; 84443; 84481; 85025